=== PATIENT | female | born 1955 | race Caucasian/White ===

== ENCOUNTER 2018-05-17 01:01 | Emergency (ER) | payer SELFPAY ==
[2018-05-17 01:10] VITALS: BP 116/77; PULSE 73; BMI 24.5
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
[2018-05-17] MEDS ORDERED: ONDANSETRON *ODT* 4 MG TABLET SL ONE (01:47)
[2018-05-17] MEDS ORDERED: ACETAMINOPHEN 325 MG TABLET (FP) ONE ×2 (01:48→01:50)
[2018-05-17] MEDS ORDERED: ACETAMINOPHEN 325 MG TABLET (FP) PO ONE (01:48)
[2018-05-17] MEDS ORDERED: ONDANSETRON *ODT* 4 MG TABLET ONE (01:48)
== END 2018-05-17 02:19 | disposition home or self-care (01) ==
LOC: FER 01:01
DX: S39.012A Strain of muscle, fascia and tendon of lower back, initial encounter (principal); V48.1XXA Car passenger injured in noncollision transport accident in nontraffic accident, initial encounter; Y93.89 Activity, other specified; Y92.410 Unspecified street and highway as the place of occurrence of the external cause; Z87.891 Personal history of nicotine dependence; E03.9 Hypothyroidism, unspecified
CPT/HCPCS: 72050-TC-FY; 99281-25; Q0162